=== PATIENT | male | born 1960 | race Caucasian/White ===

== ENCOUNTER → 2016-05-31 | Outpatient (REF) | payer OTHER ==
[~2016-05-31] MED LIST: BACT800T5 PO; CINN1CAP6 PO; CINN500C9 PO; CO Q100C10 PO; DRIS50002 PO; FISH1000 PO; GLIP10TA PO; GLIP10TA58 PO; GLUC750T2 PO; IBUP60TA PO; JANU100T PO; LISI10TA4 PO; METF1000 PO; NAPR250T2 PO; NAPR275T18 PO; TUMORIC PO; Trimethoprim/Sulfamethoxazole PO; VITA500C3 PO; ZOCO20TA PO; [UNRECOGNIZED DRUG - OTHER] PO
[2016-05-31 19:10] LABS: ALBUMIN/GLOBULIN RATIO 1.33 (1.00-1.93); ALKALINE PHOSPHATASE 48 U/L (45-117); ALT/SGPT 31 U/L (12-78); ANION GAP 7 MEQ/L (8-16); AST/SGOT 19 U/L (15-37); BILIRUBIN,TOTAL 0.6 MG/DL (0.2-1.0); BLOOD UREA NITROGEN 15 MG/DL (7-18); CALCIUM LEVEL 8.7 MG/DL (8.5-10.1); CARBON DIOXIDE LEVEL 28 MEQ/L (21-32); CHLORIDE LEVEL 104 MEQ/L (98-107); CHOLESTEROL LEVEL 134 MG/DL (<200); CREATININE FOR GFR 0.94 MG/DL (0.70-1.30); GLOMERULAR FILTRATION RATE > 60.0 (>56); GLUCOSE, FASTING 162 MG/DL (70-105); POTASSIUM SERUM 4.8 MEQ/L (3.5-5.1); SODIUM LEVEL 139 MEQ/L (136-145); TRIGLYCERIDES LEVEL 137 MG/DL (<150)
== END ==
LOC: M LABDRAW1 17:11
PROVIDERS: ATTEND Family Medicine
DX: E11.9 Type 2 diabetes mellitus without complications (principal); E55.9 Vitamin D deficiency, unspecified; E78.5 Hyperlipidemia, unspecified; I10 Essential (primary) hypertension

== ENCOUNTER → 2016-06-19 | Outpatient (REF) | payer OTHER | LOC: M SMT 16:48 | PROVIDERS: ATTEND Nurse Practitioner Family | DX: R35.0 Frequency of micturition (principal) ==

== ENCOUNTER → 2016-10-04 | Outpatient (CLI) | payer OTHER | END | disposition home or self-care (01) | LOC: M SMT PRO 09:07 | PROVIDERS: ATTEND Urology | DX: N48.6 Induration penis plastica (principal); Z53.9 Procedure and treatment not carried out, unspecified reason ==

== ENCOUNTER → 2016-11-01 | Outpatient (CLI) | payer OTHER ==
[~2016-11-01] MED LIST changes: -GLIP10TA58 PO; +GLIP1TAB11 PO; -METF1000 PO; +METF10004 PO; -NAPR250T2 PO; +NAPR250T4 PO; -NAPR275T18 PO; +[UNRECOGNIZED DRUG - CODE] PO
== END ==
LOC: M SMT PRO 10:59
PROVIDERS: ATTEND Urology
DX: N48.6 Induration penis plastica (principal); N52.9 Male erectile dysfunction, unspecified

== ENCOUNTER 2017-03-14 19:52 | Emergency (ER) | payer OTHER ==
[~2017-03-14] VITALS: Ht 172.7 cm; Wt 93.2 kg
[2017-03-14] MEDS ORDERED: VALA1TAB2 PO (20:15)
[2017-03-14] MEDS ORDERED: INVO100T PO (20:15)
[2017-03-14] MEDS ORDERED: CLINDAMYCIN 900 MG in APPROPRIATE DILUENT 1 EA IV ONE (20:30)
[2017-03-14] MEDS ORDERED: valACYclovir HCL 500 MG TAB PO ONE (20:45)
[2017-03-14] MEDS ORDERED: ACETAMINOPHEN 325 MG TAB PO ONE (20:45)
[2017-03-14 20:53] LABS: MEAN CORPUSCULAR HEMOGLOBIN 31.1 pg (27.0-33.0); MEAN CORPUSCULAR HGB CONC 33.5 g/dl (32.0-36.5); PLATELET COUNT, AUTOMATED 258 10^3/uL (150-450); RED CELL DISTRIBUTION WIDTH 13.2 % (11.5-14.5)
[2017-03-14 20:58] LABS: ADD MANUAL DIFFER YES; DIFF SLIDE NUMBER 135; POSITIVE DIFF POS FLAG; WHITE BLOOD COUNT 20.8 10^3/uL (4.0-10.0)
[2017-03-14 21:18] LABS: ALBUMIN 4.3 GM/DL (3.2-5.2); ALBUMIN/GLOBULIN RATIO 1.08 (1.00-1.93); ALKALINE PHOSPHATASE 49 U/L (45-117); ALT/SGPT 28 U/L (12-78); ANION GAP 6 MEQ/L (8-16); AST/SGOT 18 U/L (7-37); BILIRUBIN,TOTAL 0.4 MG/DL (0.2-1.0); BLOOD UREA NITROGEN 28 MG/DL (7-18); CALCIUM LEVEL 9.4 MG/DL (8.5-10.1); CARBON DIOXIDE LEVEL 31 MEQ/L (21-32); CHLORIDE LEVEL 100 MEQ/L (98-107); CREATININE FOR GFR 1.29 MG/DL (0.70-1.30); GLOMERULAR FILTRATION RATE > 60.0 (>56); GLUCOSE, FASTING 155 MG/DL (70-105); POTASSIUM SERUM 4.3 MEQ/L (3.5-5.1); SODIUM LEVEL 137 MEQ/L (136-145); TOTAL PROTEIN 8.3 GM/DL (6.4-8.2)
[2017-03-14 21:20] LABS: BANDS 2 % (< 11)
--- NOTE | 2017-03-14 21:40 | REPUSA ---
Clinical history: Pain, swelling. Findings: The common femoral, superficial femoral, popliteal, and other deep venous structures compre ss normally and demonstrate normal color Doppler flow. Normal venous waveforms with augmentation are seen. There is a cyst in the left popliteal fossa measuring 4.9 x 2.0 x 3.9 cm. Impression: No evidence of deep vein thrombosis in the left femoral popliteal venous system. Left-sided Tang grabiel t.
[2017-03-14] MEDS ORDERED: CLEO300C2 PO (22:19)
[2017-03-14 22:31] VITALS: BP 138/68
[2017-03-14] MEDS ORDERED: IBUPROFEN 800 MG TAB PO ONE (23:15)
== END 2017-03-14 23:56 | disposition home or self-care (01) ==
LOC: M ED 19:52
DX: L03.116 Cellulitis of left lower limb (principal); Z87.891 Personal history of nicotine dependence

== ENCOUNTER 2017-03-16 18:16 | Inpatient (IN) | payer OTHER ==
[~2017-03-16] VITALS: Ht 172.7 cm; Wt 94.5 kg
[~2017-03-16 18:16] MED LIST changes: +CLEO300C2 PO; +INVO100T PO; +VALA1TAB2 PO
[2017-03-16] MEDS ORDERED: NS 1,000 ML IV ONE (19:45)
[2017-03-16 20:24] LABS: MEAN CORPUSCULAR HEMOGLOBIN 30.8 pg (27.0-33.0); MEAN CORPUSCULAR HGB CONC 32.8 g/dl (32.0-36.5); MEAN CORPUSCULAR VOLUME 94.1 fl (80.0-96.0); PLATELET COUNT, AUTOMATED 236 10^3/uL (150-450); RED CELL DISTRIBUTION WIDTH 13.4 % (11.5-14.5); WHITE BLOOD COUNT 12.5 10^3/uL (4.0-10.0)
[2017-03-16 20:48] LABS: INR 0.87
[2017-03-16 20:49] LABS: ANION GAP 6 MEQ/L (8-16); BLOOD UREA NITROGEN 22 MG/DL (7-18); CALCIUM LEVEL 8.8 MG/DL (8.5-10.1); CARBON DIOXIDE LEVEL 28 MEQ/L (21-32); CHLORIDE LEVEL 105 MEQ/L (98-107); CREATININE FOR GFR 1.03 MG/DL (0.70-1.30); GLOMERULAR FILTRATION RATE > 60.0 (>56); GLUCOSE, FASTING 147 MG/DL (70-105); POTASSIUM SERUM 4.5 MEQ/L (3.5-5.1); SODIUM LEVEL 139 MEQ/L (136-145)
[2017-03-16 21:48] LABS: ERYTHROCYTE SEDIMENTATION RATE 7 mm/hr (0-20)
[2017-03-16] MEDS ORDERED: CEFTAROLINE FOSAMIL 600 MG in APPROPRIATE DILUENT 1 EA IV ONE (22:00)
[2017-03-16] MEDS ORDERED: CLEO150C PO (22:40)
[2017-03-16] MEDS ORDERED: DEXTROSE 50% 50 ML SYRINGE IV PRN (23:15)
[2017-03-16] MEDS ORDERED: GLUCAGON FOR INJ 1 MG VIAL (J1610) SC PRN (23:15)
[2017-03-16] MEDS ORDERED: GLUCOSE 4 GM CHEW TABLET PO PRN (23:15)
--- NOTE | 2017-03-17 01:17 | HPE ---
DATE OF ADMISSION: 03/16/2017 The patient, Mathew Troncoso, is a 56-year-old male. Patient comes in with chief complaint of worsening cellulitis. The patient was recently in our emergency department (ED) with left leg cellulitis on . Patient was given clindamycin and sent home on oral antibiotics; however, patient's cellulitis area increased outside of the borders drawn in the ED. However, patient is clinically improved without any constitutional symptoms at this time. No feelings of fever, nausea, vomiting, diarrhea, constipation, lightheadedness. Patient was found to have improved laboratory results, white blood cells (WBCs) improved and patient is vitally stable. However, patient is being admitted by ED secondary to failure of outpatient antibiotics. REVIEW OF SYSTEMS: Patient without any other acute complaints as noted. PREVIOUS MEDICAL HISTORY: Patient has a history of recurrent cellulitis. Patient has history of diabetes mellitus on oral medications, chronic lymphocytic leukemia (CLL) for which he is not under any treatment, but is under observation and followup, hypertension, hyperlipidemia. ALLERGIES: Patient is allergic to GLYBURIDE and TESTOSTERONE as per documentation. Patient with noncontributory family history. Patient is a nonsmoker, does not use alcohol or drugs. Patient's home medications include: - outpatient clindamycin - Invokana - CoQ10 - fish oil - glipizide - glucosamine chondroitin - lisinopril - metformin - naproxen - simvastatin - valacyclovir for which he is taking as continued treatment for resolving shingles PHYSICAL EXAMINATION: Patient's vital signs: Temperature 97.5, pulse 59, respiratory rate 19, blood pressure 127/76, pulse oximetry 96% on room air. Patient with no imaging on this visit. Patient was resting comfortably when I came in, alert and oriented times three. Patient with extraocular movements intact, pupils equal and reactive to light and accommodation. ENT within normal limits. Good inspiratory, expiratory effort. No wheezes, rhonchi or rales. S1, S2, regular rate. No murmur, rub or gallop. Abdomen soft, nontender to palpation. Skin is warm and dry. There is, however, obvious cellulitis on the left lower leg, which has clearly spread outside of the previously demarcated area from . Patient with good pulses peripherally. Patient with 5/5 strength and full range of motion. Patient's cranial nerves II-XII grossly intact. Patient with good strength, able to sit up under his own power. Patient with normal affect, normal mood. No apparent worsening of lymphadenopathy; however, patient does have an enlarged lymph node in the left inguinal area. However, patient notes that this is much smaller than it was previously. LABORATORY EXAMINATION: Shows improved WBC count as noted above, hemoglobin and hematocrit and platelets normal. Chemistry grossly normal excepting BUN 22, fasting glucose is 147, however, this is not a fasting glucose. CRP is 4.1. Coagulations grossly normal. ASSESSMENT AND PLAN: The patient is a 56-year-old male who comes in with cellulitis. Patient to continue intravenous (IV) Teflaro started in emergency department (ED). Patient's condition improving despite increased area of redness. Patient constitutionally improving and lymphadenopathy improving. Expect patient to be here for a couple days for IV antibiotics; however, early discharge possible. Patient is ambulatory and not at high risk for thrombosis, therefore, chemical deep venous thrombosis (DVT) prophylaxis is not indicated. Gastroesophageal reflux disease (GERD)/gastrointestinal (GI) prophylaxis. Patient to be on proton pump inhibitor (PPI). Diabetes mellitus. Will put patient on insulin sliding scale. Continue patient's valacyclovir for resolving shingles. For hyperlipidemia, continue patient's home medication of simvastatin. For chronic joint pain, continue patient's home medication of naproxen. For hypertension, continue lisinopril 10 mg. Patient was first seen 03/16/2017.
[2017-03-17 02:00] VITALS: BP 156/77
[2017-03-17] MEDS: ACETAMINOPHEN TAB 650MG DOSE (2X325MG) PO PRN (05:40)
[2017-03-17] MEDS: valACYclovir HCL 500 MG TAB PO SCH ×3 (05:40→21:35)
[2017-03-17 06:00] VITALS: BP 120/64
[2017-03-17 06:37] LABS: MEAN CORPUSCULAR HEMOGLOBIN 30.9 pg (27.0-33.0); MEAN CORPUSCULAR HGB CONC 33.1 g/dl (32.0-36.5); MEAN CORPUSCULAR VOLUME 93.5 fl (80.0-96.0); PLATELET COUNT, AUTOMATED 239 10^3/uL (150-450); RED CELL DISTRIBUTION WIDTH 13.3 % (11.5-14.5); WHITE BLOOD COUNT 14.9 10^3/uL (4.0-10.0)
[2017-03-17 06:56] LABS: ANION GAP 8 MEQ/L (8-16); BLOOD UREA NITROGEN 18 MG/DL (7-18); CARBON DIOXIDE LEVEL 24 MEQ/L (21-32); CHLORIDE LEVEL 107 MEQ/L (98-107); GLOMERULAR FILTRATION RATE > 60.0 (>56); GLUCOSE, FASTING 144 MG/DL (70-105); POTASSIUM SERUM 4.4 MEQ/L (3.5-5.1); SODIUM LEVEL 139 MEQ/L (136-145)
[2017-03-17] MEDS: HumaLOG INSULIN (NovoLOG) PER UNIT SC SCH ×3 (07:43→17:24)
[2017-03-17] MEDS: PANTOPRAZOLE 40MG TAB (PROTONIX) PO SCH (09:18)
[2017-03-17] MEDS: CEFTAROLINE FOSAMIL 600 MG in APPROPRIATE DILUENT 1 EA IV SCH ×2 (10:24→21:35)
[2017-03-17] MEDS: NAPROXEN 250 MG TAB PO PRN ×2 (10:25→21:36)
--- NOTE | 2017-03-17 11:29 | IPNPDOC ---
Subjective Date Seen The patient was seen on 03/17/17. Subjective Chief Complaint/HPI The patient is a 56-year-old male admitted with a reason for visit of Cellulitis Of Leg Without Foot. Events since last encounter No new complaints over night , inflammation less than yesterday , denies any fever or chills, no chest pain or sob , no abdominal pain nausea or vomiting or diarrhea. Objective Physical Examination General Exam: Positive: Alert, Cooperative, No Acute Distress Eye Exam: Positive: PERRLA, Conjunctiva & lids normal, EOMI, Negative: Sclera icteric ENT Exam: Positive: Atraumatic, Mucous membr. moist/pink, Pharynx Normal Neck Exam: Positive: Supple, Negative: JVD, thyromegaly Chest Exam: Positive: Clear to auscultation, Normal air movement Heart Exam: Positive: Rate Normal, Regular Rhythm, Normal S1, Normal S2, Negative: Murmurs, Rubs Abdomen Exam: Positive: Normal bowel sounds, Soft, Negative: Tenderness, Hepatospenomegaly Extremity Exam: Positive: Normal pulses, Negative: Clubbing, Cyanosis, Edema Skin Exam: Positive: Other skin issue (redness, swelling on the shafer of left leg improving) Assessment /Plan Problems (1) Cellulitis Status: Acute Problem Text: continue ceftaroline. will consider discharging on dalvance. (2) Diabetes mellitus Status: Chronic (3) Personal history of CLL (chronic lymphocytic leukemia) Status: Chronic (4) HLD (hyperlipidemia) Status: Chronic (5) HTN (hypertension) Status: Chronic Plan/VTE VTE Prophylaxis Ordered?: Yes VS, I&O, 24H, Fishbone Vital Signs/I&O Vital Signs Date Time Temp Pulse Resp B/P (MAP) Pulse Ox O2 Delivery O2 Flow Rate FiO2 03/17/17 10:06 Room Air 03/17/17 06:00 97.7 70 17 120/64 (82) 96 I&O- Last 24 Hours up to 6 AM 03/18/17 06:00 Intake Total 840 ml Output Total 850 ml Balance -10 ml Laboratory Data 24H LABS Laboratory Tests 2 03/16/17 20:10: Nucleated Red Blood Cells % (auto) 0.2H, Erythrocyte Sedimentation Rate 7, Prothrombin Time 11.9L, Prothromb Time International Ratio 0.87, Anion Gap 6L, Glomerular Filtration Rate > 60.0, Lactic Acid Level 1.1, Blood Urea Nitrogen 22H, Creatinine 1.03, Sodium Level 139, Potassium Level 4.5, Chloride Level 105 , Carbon Dioxide Level 28, Calcium Level 8.8, C-Reactive Protein, Quantitative 4.10H 03/17/17 05:56: Nucleated Red Blood Cells % (auto) 0.0, Anion Gap 8, Glomerular Filtration Rate > 60.0, Blood Urea Nitrogen 18, Creatinine 0.90, Sodium Level 139, Potassium Level 4.4, Chloride Level 107, Carbon Dioxide Level 24, Calcium Level 9.0 CBC/BMP Laboratory Tests 03/16/17 20:10 Red Blood Count 4.93, Mean Corpuscular Volume 94.1, Mean Corpuscular Hemoglobin 30.8, Mean Corpuscular Hemoglobin Concent 32.8, Red Cell Distribution Width 13.4 , Calcium Level 8.8 03/17/17 05:56 Red Blood Count 5.08, Mean Corpuscular Volume 93.5, Mean Corpuscular Hemoglobin 30.9, Mean Corpuscular Hemoglobin Concent 33.1, Red Cell Distribution Width 13.3 , Calcium Level 9.0 Microbiology Microbiology 03/16/17 Blood Culture, Received Pending 03/16/17 Blood Culture, Received Pending VITA CORMIER MD Mar 17, 2017 11:28
[2017-03-17 14:00] VITALS: BP 153/77
[2017-03-17 17:26] VITALS: BP 133/76
[2017-03-17] MEDS ORDERED: LISINOPRIL 10 MG TAB PO SCH (18:00)
[2017-03-17] MEDS ORDERED: SIMVASTATIN 20 MG TAB PO SCH (18:00)
[2017-03-17] MEDS ORDERED: OMEGA-3 1050MG CAPSULE PO SCH (18:00)
[2017-03-17] MEDS ORDERED: HumaLOG INSULIN (NovoLOG) PER UNIT SC SCH (21:00)
[2017-03-17 22:00] VITALS: BP 142/68
[2017-03-18] MEDS: ACETAMINOPHEN TAB 650MG DOSE (2X325MG) PO PRN (04:22)
[2017-03-18 06:00] VITALS: BP 129/76
[2017-03-18 06:03] LABS: MEAN CORPUSCULAR HEMOGLOBIN 30.6 pg (27.0-33.0); MEAN CORPUSCULAR HGB CONC 33.5 g/dl (32.0-36.5); MEAN CORPUSCULAR VOLUME 91.6 fl (80.0-96.0); PLATELET COUNT, AUTOMATED 252 10^3/uL (150-450); RED CELL DISTRIBUTION WIDTH 13.2 % (11.5-14.5); WHITE BLOOD COUNT 11.4 10^3/uL (4.0-10.0)
[2017-03-18 06:10] LABS: ANION GAP 8 MEQ/L (8-16); BLOOD UREA NITROGEN 18 MG/DL (7-18); CALCIUM LEVEL 8.9 MG/DL (8.5-10.1); CARBON DIOXIDE LEVEL 25 MEQ/L (21-32); CHLORIDE LEVEL 107 MEQ/L (98-107); CREATININE FOR GFR 0.82 MG/DL (0.70-1.30); GLOMERULAR FILTRATION RATE > 60.0 (>56); GLUCOSE, FASTING 166 MG/DL (70-105); POTASSIUM SERUM 4.6 MEQ/L (3.5-5.1); SODIUM LEVEL 140 MEQ/L (136-145)
[2017-03-18] MEDS: valACYclovir HCL 500 MG TAB PO SCH (06:37)
[2017-03-18] MEDS: NAPROXEN 250 MG TAB PO PRN (06:38)
[2017-03-18] MEDS: PANTOPRAZOLE 40MG TAB (PROTONIX) PO SCH (08:06)
[2017-03-18] MEDS: HumaLOG INSULIN (NovoLOG) PER UNIT SC SCH ×2 (08:06→12:31)
[2017-03-18] MEDS: CEFTAROLINE FOSAMIL 600 MG in APPROPRIATE DILUENT 1 EA IV SCH (10:46)
--- NOTE | 2017-03-18 14:00 | DSES ---
DATE OF ADMISSION: 03/16/2017 DATE OF DISCHARGE: PRIMARY CARE PROVIDER: Grant Newberry DISCHARGE DIAGNOSES: 1. Cellulitis of the left lower extremity. 2. Diabetes. 3. Hyperlipidemia. 4. Hypertension. 5. History of chronic lymphocytic leukemia, for which he is under observation. 6. Recent history of shingles of the right neck and chest. DISCHARGE MEDICATIONS: - Dalvance 1.5 gram once on 03/11/2017 - Invokana 100 mg by mouth daily - Coenzyme Q10 100 mg by mouth daily - fish oil 1000 mg by mouth at bedtime - glipizide XL 10 mg by mouth daily - glucosamine chondroitin one tablet by mouth twice a day - lisinopril 10 mg by mouth each evening - metformin hydrochloride 1000 mg by mouth twice a day - naproxen 250 mg by mouth twice a day as needed pain - simvastatin 20 mg each evening - valacyclovir 1 gram by mouth every 8 hours HOSPITAL COURSE: This is a 56-year-old male who initially had a small amount of redness and localized infection on the shafer of his left leg about 2-1/2 weeks ago, for which he was given a course of oral antibiotics, which seemed to have improved. Then, he developed shingles, for which he was started on valacyclovir; and when he was recovering from his shingles, he noticed the redness of his left lower leg has again come back and has increased; so, he came to the emergency room. In the emergency department (ED), he got one dose of intravenous (IV) antibiotic and discharged home with by mouth clindamycin. He stayed at home about 24-36 hours. However, he noticed the redness and pain increasing further. So, he came back to the emergency room and was admitted to the hospitalist service for cellulitis. The patient was started on ceftaroline with good response to treatment. The patient's blood cultures were preliminarily negative. The patient's pain and inflammation almost resolved. His vital signs are stable. He does not have any complaints today. He is going to be discharged home with a dose of Dalvance to be given on 03/19/2017 at his home to finish the course of treatment for his cellulitis. PHYSICAL EXAMINATION: VITAL SIGNS: Temperature 97.1, pulse 58, respiratory rate 16, blood pressure 129/76, pulse oximetry 95% in room air. GENERAL: The patient awake, alert, oriented times three. Sitting up in bed in no acute distress. HEENT: Normocephalic, atraumatic. Moist mucous membranes. Anicteric eyes. CHEST: Clear to auscultation. CARDIOVASCULAR: S1, S2. Regular. No rub, murmur, or gallop. ABDOMEN: Soft, nontender. Bowel sounds present. EXTREMITIES: No edema. In the left lower extremity, there is improving area of redness and inflammation. LABORATORY DATA: WBC 11.4, platelet 252, hemoglobin 15.6. Sodium 140, potassium 4.6, chloride 107, bicarbonate 35, BUN 13, creatinine 0.8, glucose 166, calcium 8.9. Vascular ultrasound was negative for deep venous thrombosis (DVT). DISPOSITION: The patient is discharged home in a stable condition. DISCHARGE INSTRUCTIONS: The patient to followup with primary care provider in 1 week. Consistent-carbohydrate diet. Activity as tolerated.
== END 2017-03-18 13:59 | disposition home health service (06) | DRG 603 ==
LOC: M ED 18:16 → M ED INP 22:28 → M MSPAV 03-17 00:31
PROVIDERS: ADMIT Internal Medicine; ATTEND Internal Medicine Nephrology
DX: L03.116 Cellulitis of left lower limb (principal); C91.90 Lymphoid leukemia, unspecified not having achieved remission; E11.628 Type 2 diabetes mellitus with other skin complications; I10 Essential (primary) hypertension; E78.5 Hyperlipidemia, unspecified; M25.50 Pain in unspecified joint; B02.9 Zoster without complications; Z79.84 Long term (current) use of oral hypoglycemic drugs; Z88.8 Allergy status to other drugs, medicaments and biological substances; Z79.899 Other long term (current) drug therapy

== ENCOUNTER → 2017-05-02 | Outpatient (REF) | payer OTHER ==
[2017-05-02 15:51] LABS: HEMATOCRIT 47.9 % (42.0-52.0); HEMOGLOBIN 15.9 g/dl (14.0-18.0); MEAN CORPUSCULAR HEMOGLOBIN 31.1 pg (27.0-33.0); MEAN CORPUSCULAR HGB CONC 33.2 g/dl (32.0-36.5); MEAN CORPUSCULAR VOLUME 93.7 fl (80.0-96.0); PLATELET COUNT, AUTOMATED 232 10^3/uL (150-450); RED BLOOD COUNT 5.11 10^6/uL (4.30-6.10); RED CELL DISTRIBUTION WIDTH 13.2 % (11.5-14.5)
[2017-05-02 15:53] LABS: POSITIVE DIFF POS FLAG; WHITE BLOOD COUNT 14.2 10^3/uL (4.0-10.0)
[2017-05-02 15:54] LABS: ADD MANUAL DIFFER YES; DIFF SLIDE NUMBER 267
[2017-05-02 16:17] LABS: ALBUMIN 4.2 GM/DL (3.2-5.2); ALKALINE PHOSPHATASE 43 U/L (45-117); ALT/SGPT 29 U/L (12-78); ANION GAP 9 MEQ/L (8-16); AST/SGOT 19 U/L (7-37); BILIRUBIN,TOTAL 0.4 MG/DL (0.2-1.0); BLOOD UREA NITROGEN 24 MG/DL (7-18); C REACTIVE PROTEIN QUANTITATIV < 0.30 MG/DL (0.00-0.30); CALCIUM LEVEL 9.2 MG/DL (8.5-10.1); CARBON DIOXIDE LEVEL 26 MEQ/L (21-32); CHLORIDE LEVEL 104 MEQ/L (98-107); CREATININE FOR GFR 0.92 MG/DL (0.70-1.30); GLOMERULAR FILTRATION RATE > 60.0 (>56); GLUCOSE, FASTING 191 MG/DL (70-105); POTASSIUM SERUM 4.8 MEQ/L (3.5-5.1); SODIUM LEVEL 139 MEQ/L (136-145)
[2017-05-02 16:37] LABS: ERYTHROCYTE SEDIMENTATION RATE 1 mm/hr (0-20)
[2017-05-02 16:52] LABS: ATYPICAL LYMPH 7 % (0-5); LYMPHOCYTES 70 % (16-52); MONOCYTES 5 % (0-8); NEUTROPHILS 18 % (35-75)
[2017-05-02 16:53] LABS: PLATELET ESTIMATE NORMAL (NORMAL); SMUDGE CELLS 1+
== END ==
LOC: M SFHCPLAZ 13:41
DX: L03.119 Cellulitis of unspecified part of limb (principal)

== ENCOUNTER → 2017-05-23 | Outpatient (REF) | payer OTHER ==
[2017-05-23 16:22] LABS: HEMATOCRIT 49.2 % (42.0-52.0); HEMOGLOBIN 16.4 g/dl (14.0-18.0); MEAN CORPUSCULAR HEMOGLOBIN 31.2 pg (27.0-33.0); MEAN CORPUSCULAR HGB CONC 33.3 g/dl (32.0-36.5); MEAN CORPUSCULAR VOLUME 93.5 fl (80.0-96.0); PLATELET COUNT, AUTOMATED 243 10^3/uL (150-450); RED BLOOD COUNT 5.26 10^6/uL (4.30-6.10); RED CELL DISTRIBUTION WIDTH 13.1 % (11.5-14.5)
[2017-05-23 16:33] LABS: ADD MANUAL DIFFER YES; DIFF SLIDE NUMBER 299; POSITIVE DIFF POS FLAG; WHITE BLOOD COUNT 14.4 10^3/uL (4.0-10.0)
[2017-05-23 16:42] LABS: ALBUMIN 4.2 GM/DL (3.2-5.2); ALKALINE PHOSPHATASE 45 U/L (45-117); ALT/SGPT 28 U/L (12-78); AST/SGOT 15 U/L (7-37); BILIRUBIN,DIRECT 0.1 MG/DL (0.0-0.2); BILIRUBIN,TOTAL 0.4 MG/DL (0.2-1.0); IMMUNOGLOBULIN A 96.1 MG/DL (70-400); IMMUNOGLOBULIN G 906 MG/DL (681-1648); IMMUNOGLOBULIN M 34.1 MG/DL (40-230); TOTAL PROTEIN 7.2 GM/DL (6.4-8.2)
[2017-05-23 19:17] LABS: ATYPICAL LYMPH 20 % (0-5); LYMPHOCYTES 56 % (16-52); MONOCYTES 3 % (0-8); NEUTROPHILS 21 % (35-75); PLATELET ESTIMATE NORMAL (NORMAL)
== END ==
LOC: M SFHCPLAZ 15:34
DX: C91.10 Chronic lymphocytic leukemia of B-cell type not having achieved remission (principal); B35.3 Tinea pedis

== ENCOUNTER → 2017-06-18 | Outpatient (REF) | payer OTHER ==
[2017-06-18 20:43] LABS: ALBUMIN 3.9 GM/DL (3.2-5.2); ALKALINE PHOSPHATASE 41 U/L (45-117); ALT/SGPT 27 U/L (12-78); ANION GAP 4 MEQ/L (8-16); AST/SGOT 14 U/L (7-37); BILIRUBIN,TOTAL 0.3 MG/DL (0.2-1.0); BLOOD UREA NITROGEN 22 MG/DL (7-18); CARBON DIOXIDE LEVEL 31 MEQ/L (21-32); CHLORIDE LEVEL 105 MEQ/L (98-107); CHOLESTEROL LEVEL 145 MG/DL (<200); CHOLESTEROL RISK RATIO 4.393 (<5); CREATININE FOR GFR 0.95 MG/DL (0.70-1.30); GLOMERULAR FILTRATION RATE > 60.0 (>56); GLUCOSE, FASTING 164 MG/DL (70-100); HDL CHOLESTEROL 33 MG/DL (>40); NON-HDL-C 112 MG/DL; POTASSIUM SERUM 4.8 MEQ/L (3.5-5.1); SODIUM LEVEL 140 MEQ/L (136-145); TOTAL PROTEIN 6.5 GM/DL (6.4-8.2); TRIGLYCERIDES LEVEL 125 MG/DL (<150)
[2017-06-18 21:23] LABS: ESTIMATED AVERAGE GLUCOSE 177 MG/DL (60-110); HEMOGLOBIN A1c 7.8 %
== END ==
LOC: M LABDRWAD 19:35
DX: E11.9 Type 2 diabetes mellitus without complications (principal); E78.5 Hyperlipidemia, unspecified; I10 Essential (primary) hypertension
CPT/HCPCS: 80053

== ENCOUNTER 2017-09-11 20:51 | Emergency (ER) | payer OTHER ==
[2017-09-12] MEDS: NORCO 5/325MG TABLET (BULK FOR ED) PO (02:14)
== END 2017-09-12 02:20 | disposition home or self-care (01) ==
LOC: M ED 09-12 02:20
DX: S46.812A Strain of other muscles, fascia and tendons at shoulder and upper arm level, left arm, initial encounter (principal); W55.29XA Other contact with cow, initial encounter; Y92.9 Unspecified place or not applicable; Y93.9 Activity, unspecified; Y99.9 Unspecified external cause status; I10 Essential (primary) hypertension; G43.909 Migraine, unspecified, not intractable, without status migrainosus; K21.9 Gastro-esophageal reflux disease without esophagitis; E78.5 Hyperlipidemia, unspecified; Z85.6 Personal history of leukemia; E23.0 Hypopituitarism; Z79.84 Long term (current) use of oral hypoglycemic drugs; Z79.899 Other long term (current) drug therapy; Z88.8 Allergy status to other drugs, medicaments and biological substances
CPT/HCPCS: 71101

== ENCOUNTER → 2018-06-28 | Outpatient (CLI) | payer OTHER ==
[~2018-06-28] MED LIST changes: +CLEO150C PO; +CYCL10TA PO; -DRIS50002 PO; +DRIS50003 PO; +GLUC750T13 PO; -GLUC750T2 PO; +KETO10TAB PO; +NORC1TAB4 PO; +VITA50005; +[UNRECOGNIZED DRUG - CODE] PO; -[UNRECOGNIZED DRUG - CODE] PO
--- NOTE | 2018-06-28 11:38 | REP ---
Lumbar spine five views: There are no comparisons. There is scoliosis convex left in the inferior lumbar area. Vertebral body heights, interspacing and alignment are normal except for moderate disc space narrowing and small osteophyte formation at T12-L1 and L1-2 compatible with mild degenerative disc disease at these levels. There is no spondylolysis or spondylolisthesis. The pedicles, facets and sacroiliac articulations are unremarkable. Impression: Scoliosis as described. Mild degenerative disc disease as described. Electronically Signed by Heriberto Bautista MD 06/28/2018 11:28 A
== END ==
LOC: M ADAMS 10:32
PROVIDERS: ATTEND Physician Assistant Medical
DX: M51.26 Other intervertebral disc displacement, lumbar region (principal); M51.27 Other intervertebral disc displacement, lumbosacral region; M41.86 Other forms of scoliosis, lumbar region

== ENCOUNTER 2018-06-29 13:07 | Emergency (ER) | payer OTHER ==
[~2018-06-29] VITALS: Ht 172.7 cm; Wt 93.2 kg
[~2018-06-29 13:07] MED LIST changes: -KETO10TAB PO; -NORC1TAB4 PO
[2018-06-29] MEDS ORDERED: NORC1TAB4 PO (13:20)
[2018-06-29] MEDS ORDERED: MORPHINE 10 MG/ML 1ML VIAL (J2270) IM ONE (14:30)
--- NOTE | 2018-06-29 16:15 | REPVR ---
EXAM: MR Lumbar Spine Without Contrast. EXAM DATE/TIME: 06/29/2018 2:29 PM CLINICAL HISTORY: 57 years old, male; Pain; Low back pain; Additional info: Low back pain; Reported lower ext numbness TECHNIQUE: Multiplanar magnetic resonance images of the lumbar spine without intravenous contrast. COMPARISON: DX SPINE LS COMPLETE 06/28/2018 10:27 AM FINDINGS: Vertebrae: Unremarkable. No fracture. Marrow: Small hemangioma within the L4 vertebral body. L1-L2: No significant disc disease. No stenosis. L2-L3: No significant disc disease. No stenosis. L3-L4: Minimal disc space height loss and decreased disc signal. Mild posterior broad-based disc protrusion and bilateral facet hypertrophy. No focal protrusion or nerve root impingement. No spinal stenosis. L4-L5: Disc space height loss and mild decreased disc signal. Posterior broad-based disc protrusion and left-sided posterior lateral/foraminal focal disc protrusion, which abuts and posteriorly displaces the left L5 nerve root. Mild bilateral facet hypertrophy. Mild spinal stenosis. L5-S1: Posterior central annular fissure and small posterior central focal disc protrusion/extrusion with 4 mm of caudal migration. Mild bilateral facet hypertrophy. No nerve root impingement or spinal stenosis. Spinal cord: The conus terminates at the level of the L1 superior endplate. Soft tissues: Unremarkable. IMPRESSION: Degenerative spondylosis of the lower lumbar spine. This is most severe at L4-L5, where there is a left sided posterior lateral/foraminal focal disc protrusion, which abuts and posteriorly displaces the left L5 nerve root. Electronically signed by: Magan Massey On 06/29/2018 16:15:00 PM
[2018-06-29] MEDS ORDERED: KETO10TAB PO (16:44)
[2018-06-29 16:54] VITALS: BP 112/66
== END 2018-06-29 16:54 | disposition home or self-care (01) ==
LOC: M ED 13:07
DX: M51.16 Intervertebral disc disorders with radiculopathy, lumbar region (principal); E11.9 Type 2 diabetes mellitus without complications; I10 Essential (primary) hypertension; G43.909 Migraine, unspecified, not intractable, without status migrainosus; G47.33 Obstructive sleep apnea (adult) (pediatric); C91.10 Chronic lymphocytic leukemia of B-cell type not having achieved remission; Z87.19 Personal history of other diseases of the digestive system; Z88.8 Allergy status to other drugs, medicaments and biological substances; Z79.899 Other long term (current) drug therapy; Z79.84 Long term (current) use of oral hypoglycemic drugs
CPT/HCPCS: 72148; 96372; 99283; J2270

== ENCOUNTER → 2018-06-30 | Outpatient (REF) | payer OTHER ==
[~2018-06-30] MED LIST changes: +KETO10TAB PO; +NORC1TAB4 PO
[2018-06-30 16:08] LABS: ALBUMIN 4.3 GM/DL (3.2-5.2); ALT/SGPT 28 U/L (12-78); BILIRUBIN,TOTAL 0.7 MG/DL (0.2-1.0); BLOOD UREA NITROGEN 27 MG/DL (7-18); C REACTIVE PROTEIN QUANTITATIV < 0.30 MG/DL (0.00-0.30); CARBON DIOXIDE LEVEL 28 MEQ/L (21-32); CHLORIDE LEVEL 104 MEQ/L (98-107); CREATININE FOR GFR 0.93 MG/DL (0.70-1.30); GLOMERULAR FILTRATION RATE > 60.0 (>56); GLUCOSE, FASTING 152 MG/DL (70-100); POTASSIUM SERUM 5.2 MEQ/L (3.5-5.1); RHEUMATOID FACTOR QUANT < 10.0 IU/ML (<15.0); SODIUM LEVEL 137 MEQ/L (136-145); TOTAL PROTEIN 7.3 GM/DL (6.4-8.2)
[2018-06-30 16:11] LABS: HEMATOCRIT 54.4 % (42.0-52.0); MEAN CORPUSCULAR HEMOGLOBIN 31.5 pg (27.0-33.0); MEAN CORPUSCULAR HGB CONC 33.1 g/dl (32.0-36.5); MEAN CORPUSCULAR VOLUME 95.1 fl (80.0-96.0); PLATELET COUNT, AUTOMATED 239 10^3/uL (150-450); RED BLOOD COUNT 5.72 10^6/uL (4.30-6.10)
[2018-06-30 16:34] LABS: ERYTHROCYTE SEDIMENTATION RATE 1 mm/hr (0-20)
[2018-06-30 17:16] LABS: LYMPHOCYTES 63 % (16-52); MONOCYTES 3 % (0-8); NEUTROPHILS 34 % (35-75)
[2018-06-30 17:17] LABS: PLATELET ESTIMATE NORMAL (NORMAL)
[2018-07-02 10:53] LABS: ANTINUCLEAR ANTIBODIES DIRECT Negative (Negative)
== END ==
LOC: M LABDRAW1 15:29
PROVIDERS: ATTEND Physician Assistant
DX: M51.36 Other intervertebral disc degeneration, lumbar region (principal)

== ENCOUNTER → 2019-08-21 | Outpatient (REF) | payer OTHER ==
[~2019-08-21] MED LIST changes: +CYCL-707 PO; -CYCL10TA PO; +IBUP600T42 PO; -IBUP60TA PO; -NORC1TAB4 PO; +NORC1TAB7 PO; -VALA1TAB2 PO; +VALA1TAB5 PO
[2019-08-21 16:16] LABS: HEMATOCRIT 49.2 % (42.0-52.0); HEMOGLOBIN 16.5 g/dl (13.5-17.5); MEAN CORPUSCULAR HEMOGLOBIN 32.2 pg (27.0-33.0); MEAN CORPUSCULAR HGB CONC 33.5 g/dl (32.0-36.5); MEAN CORPUSCULAR VOLUME 96.1 fl (80.0-96.0); PLATELET COUNT, AUTOMATED 222 10^3/uL (150-450); RED BLOOD COUNT 5.12 10^6/uL (4.30-6.10)
[2019-08-21 16:19] LABS: WHITE BLOOD COUNT 16.6 10^3/uL (4.0-10.0)
[2019-08-21 16:36] LABS: ALBUMIN 4.1 GM/DL (3.2-5.2); ALT/SGPT 28 U/L (12-78); BILIRUBIN,TOTAL 0.5 MG/DL (0.2-1.0); BLOOD UREA NITROGEN 23 MG/DL (7-18); CALCIUM LEVEL 9.7 MG/DL (8.5-10.1); CARBON DIOXIDE LEVEL 27 MEQ/L (21-32); CHLORIDE LEVEL 105 MEQ/L (98-107); GLOMERULAR FILTRATION RATE > 60.0 (>56); GLUCOSE, FASTING 163 MG/DL (70-100); POTASSIUM SERUM 4.7 MEQ/L (3.5-5.1); SODIUM LEVEL 138 MEQ/L (136-145)
[2019-08-21 16:48] LABS: ATYPICAL LYMPH 8 % (0-5); LYMPHOCYTES 71 % (16-44); MONOCYTES 1 % (0-5); NEUTROPHILS 20 % (28-66); PLATELET CLUMPS SMALL AMT; PLATELET ESTIMATE NORMAL (NORMAL)
== END ==
LOC: M LABDRWAD 16:02
PROVIDERS: ATTEND Internal Medicine Hematology & Oncology
DX: C91.10 Chronic lymphocytic leukemia of B-cell type not having achieved remission (principal)

== ENCOUNTER → 2020-07-04 | Outpatient (REF) | payer OTHER ==
[~2020-07-04] MED LIST changes: +LISI10TA22 PO; -LISI10TA4 PO; +NAPR-849 PO; -NAPR250T4 PO
[2020-07-04 13:10] LABS: HEMATOCRIT 49.2 % (42.0-52.0); HEMOGLOBIN 15.7 g/dl (13.5-17.5); MEAN CORPUSCULAR HEMOGLOBIN 31.5 pg (27.0-33.0); MEAN CORPUSCULAR HGB CONC 31.9 g/dl (32.0-36.5); MEAN CORPUSCULAR VOLUME 98.8 fl (80.0-96.0); PLATELET COUNT, AUTOMATED 223 10^3/uL (150-450); RED BLOOD COUNT 4.98 10^6/uL (4.30-6.10); WHITE BLOOD COUNT 13.5 10^3/uL (4.0-10.0)
[2020-07-04 13:53] LABS: ALBUMIN 4.1 GM/DL (3.2-5.2); ALT/SGPT 25 U/L (12-78); BILIRUBIN,TOTAL 0.4 MG/DL (0.2-1.0); BLOOD UREA NITROGEN 17 MG/DL (7-18); CALCIUM LEVEL 9.2 MG/DL (8.5-10.1); CARBON DIOXIDE LEVEL 30 MEQ/L (21-32); CHLORIDE LEVEL 109 MEQ/L (98-107); CREATININE FOR GFR 0.83 MG/DL (0.70-1.30); GLOMERULAR FILTRATION RATE > 60.0 (>56); GLUCOSE, FASTING 143 MG/DL (70-100); POTASSIUM SERUM 4.9 MEQ/L (3.5-5.1); SODIUM LEVEL 142 MEQ/L (136-145); TOTAL PROTEIN 6.9 GM/DL (6.4-8.2)
== END ==
LOC: M LABDRWAD 12:43
PROVIDERS: ATTEND Family Medicine
DX: C91.11 Chronic lymphocytic leukemia of B-cell type in remission (principal); E11.9 Type 2 diabetes mellitus without complications

== ENCOUNTER → 2020-08-29 | Outpatient (REF) | payer OTHER ==
[2020-08-29 19:08] LABS: HEMATOCRIT 47.6 % (42.0-52.0); HEMOGLOBIN 15.4 g/dl (13.5-17.5); MEAN CORPUSCULAR HEMOGLOBIN 31.5 pg (27.0-33.0); MEAN CORPUSCULAR HGB CONC 32.4 g/dl (32.0-36.5); MEAN CORPUSCULAR VOLUME 97.3 fl (80.0-96.0); PLATELET COUNT, AUTOMATED 246 10^3/uL (150-450); RED BLOOD COUNT 4.89 10^6/uL (4.30-6.10)
[2020-08-29 19:15] LABS: WHITE BLOOD COUNT 13.9 10^3/uL (4.0-10.0)
[2020-08-29 19:37] LABS: ALBUMIN 3.9 GM/DL (3.2-5.2); ALT/SGPT 24 U/L (12-78); BILIRUBIN,TOTAL 0.3 MG/DL (0.2-1.0); BLOOD UREA NITROGEN 22 MG/DL (7-18); CARBON DIOXIDE LEVEL 32 MEQ/L (21-32); CHLORIDE LEVEL 104 MEQ/L (98-107); CREATININE FOR GFR 0.95 MG/DL (0.70-1.30); GLOMERULAR FILTRATION RATE > 60.0 (>56); GLUCOSE, FASTING 133 MG/DL (70-100); POTASSIUM SERUM 4.9 MEQ/L (3.5-5.1); SODIUM LEVEL 139 MEQ/L (136-145); TOTAL PROTEIN 6.8 GM/DL (6.4-8.2)
[2020-08-29 20:07] LABS: ATYPICAL LYMPH 13 % (0-5); LYMPHOCYTES 64 % (16-44); MONOCYTES 4 % (0-5); NEUTROPHILS 19 % (28-66)
[2020-08-29 20:08] LABS: PLATELET ESTIMATE NORMAL (NORMAL); SMUDGE CELLS 1+
== END ==
LOC: M LAB REF 18:31 → M LABDRWAD 18:31
PROVIDERS: ATTEND Internal Medicine Hematology & Oncology
DX: C91.10 Chronic lymphocytic leukemia of B-cell type not having achieved remission (principal)

== ENCOUNTER → 2021-03-27 | Outpatient (REF) | payer OTHER ==
[2021-03-27 13:21] LABS: FREE T4 0.95 NG/DL (0.76-1.46); THYROID STIMULATING HORMONE 2.73 uIU/ML (0.358-3.740)
[2021-03-27 13:23] LABS: TOTAL T3 80.1 NG/DL (60.0-181.0)
== END ==
LOC: M LABDRWAD 12:31
PROVIDERS: ATTEND Physician Assistant Medical
DX: R53.83 Other fatigue (principal)

== ENCOUNTER → 2022-05-01 | Outpatient (CLI) | payer OTHER ==
[~2022-05-01] MED LIST changes: +ACET-910 PO; +CINN500C15 PO; +CURC500C PO; +MAGN200T PO; +OMEG10002 PO; +SIMV-253 PO; +TRUL0.5I SC; +VITA-243 PO; -ZOCO20TA PO; +[UNRECOGNIZED DRUG - OTHER] PO; +[UNRECOGNIZED DRUG - OTHER] PO
== END ==
LOC: M LABSMTC 09:08
PROVIDERS: ATTEND Anesthesiology
DX: Z01.812 Encounter for preprocedural laboratory examination (principal); Z20.822 Contact with and (suspected) exposure to COVID-19

== ENCOUNTER 2022-05-04 12:34 | Day surgery (SDC) | payer OTHER ==
[~2022-05-04] VITALS: Ht 172.7 cm; Wt 92.0 kg
[~2022-05-04 12:34] MED LIST changes: +NS 1,000 ML IV ONE
[2022-05-04 16:03] VITALS: BP 104/68
== END 2022-05-04 16:13 | disposition home or self-care (01) ==
LOC: M OPP 12:34
PROVIDERS: ATTEND Internal Medicine Gastroenterology
DX: K29.70 Gastritis, unspecified, without bleeding (principal); Z79.02 Long term (current) use of antithrombotics/antiplatelets; Z79.84 Long term (current) use of oral hypoglycemic drugs; Z79.899 Other long term (current) drug therapy; I10 Essential (primary) hypertension; E11.9 Type 2 diabetes mellitus without complications; G47.33 Obstructive sleep apnea (adult) (pediatric); Z88.8 Allergy status to other drugs, medicaments and biological substances

== ENCOUNTER → 2022-06-16 | Outpatient (CLI) | payer OTHER ==
[~2022-06-16] MED LIST changes: -NS 1,000 ML IV ONE
== END ==
LOC: M RAD 13:48
PROVIDERS: ATTEND Physician Assistant
DX: S63.8X2A Sprain of other part of left wrist and hand, initial encounter (principal); X58.XXXA Exposure to other specified factors, initial encounter; Y92.9 Unspecified place or not applicable; M19.032 Primary osteoarthritis, left wrist

== ENCOUNTER 2022-07-01 11:09 | Emergency (ER) | payer OTHER ==
[~2022-07-01] VITALS: Ht 172.7 cm; Wt 92.7 kg
[2022-07-01 12:31] LABS: BLOOD UREA NITROGEN 22 MG/DL (9-23); CARBON DIOXIDE LEVEL 31 MMOL/L (20-31); CHLORIDE LEVEL 105 MMOL/L (98-107); GLOMERULAR FILTRATION RATE > 60.0 (>56); GLUCOSE, FASTING 157 MG/DL (60-100); POTASSIUM SERUM 5.1 MMOL/L (3.5-5.1); SODIUM LEVEL 138 MMOL/L (136-145)
[2022-07-01] MEDS ORDERED: NS 1,000 ML IV ONE (12:35)
[2022-07-01 12:37] LABS: BASO % 0.2 % (0.0-1.0); EOS % 0.5 % (0.0-3.0); LYMPH # 6.3 10^3/uL (1.5-5.0); LYMPH % 72.3 % (24.0-44.0); MEAN CORPUSCULAR HEMOGLOBIN 31.7 pg (27.0-33.0); MEAN CORPUSCULAR VOLUME 99.2 fl (80.0-96.0); MONO # 0.6 10^3/uL (0.0-0.8); MONO % 6.9 % (2.0-8.0); NEUTROPHILS # 1.8 10^3/uL (1.5-8.5); PLATELET COUNT, AUTOMATED 119 10^3/uL (150-450); RED BLOOD COUNT 2.52 10^6/uL (4.30-6.10); WHITE BLOOD COUNT 8.8 10^3/uL (4.0-10.0)
[2022-07-01 13:08] LABS: ALBUMIN 3.9 G/DL (3.2-5.2); ALKALINE PHOSPHATASE 40 U/L (46-116); ALT/SGPT 26 U/L (7.0-40); AST/SGOT 27 U/L (<34); BILIRUBIN,DIRECT 0.2 MG/DL (<0.4); TOTAL PROTEIN 6.4 G/DL (5.7-8.2)
[2022-07-01] MEDS ORDERED: LIDOCAINE 5% (LIDODERM) PATCH TD ONE (15:25)
[2022-07-01 15:31] LABS: LDH LACTATE DEHYDROGENASE 247 U/L (120-246)
[2022-07-01 15:53] LABS: HEMATOCRIT 43.8 % (42.0-52.0); HEMOGLOBIN 14.3 g/dl (13.5-17.5)
[2022-07-01] MEDS ORDERED: ACETAMINOPHEN 500 MG TAB PO ONE (16:00)
[2022-07-01] MEDS ORDERED: CYCL-707 PO (16:05)
[2022-07-01] MEDS ORDERED: NAPR-837 PO (16:05)
[2022-07-01 16:20] VITALS: BP 114/63
== END 2022-07-01 16:22 | disposition home or self-care (01) ==
LOC: M ED 11:09
DX: S39.012A Strain of muscle, fascia and tendon of lower back, initial encounter (principal); X58.XXXA Exposure to other specified factors, initial encounter; Y92.89 Other specified places as the place of occurrence of the external cause; Y93.89 Activity, other specified; Y99.8 Other external cause status; I10 Essential (primary) hypertension; G47.33 Obstructive sleep apnea (adult) (pediatric); E11.9 Type 2 diabetes mellitus without complications; E78.5 Hyperlipidemia, unspecified; Z88.8 Allergy status to other drugs, medicaments and biological substances; Z79.84 Long term (current) use of oral hypoglycemic drugs; Z79.899 Other long term (current) drug therapy

== ENCOUNTER 2022-12-17 09:34 | Day surgery (SDC) | payer OTHER ==
[~2022-12-17] VITALS: Ht 172.7 cm; Wt 88.6 kg
[~2022-12-17 09:34] MED LIST changes: +DULA4.5P SC; +EYECAP2 PO; +GLIP5TAB20 PO; +HEMP SEED OIL PO; +MAGN400C2 PO; +NAPR-837 PO; +NS 1,000 ML IV ONE; +OCUV1CAP4 PO; +OMEP-173 PO; +PIOG1TAB36 PO; +SIMV20TA22 PO; +UBIQ200C3 PO; +VITA500C24 PO
[2022-12-17] MEDS ORDERED: LIDOCAINE 2% 100MG/5ML SDV (FOR ANES.) As Ordered ONE (10:38)
[2022-12-17] MEDS ORDERED: propofoL 200 MG/20 ML VIAL As Ordered ONE (10:38)
[2022-12-17 11:30] VITALS: BP 136/72; TEMP 97.3; O2SAT 98
== END 2022-12-17 11:32 | disposition home or self-care (01) ==
LOC: M OPP 09:34
PROVIDERS: ATTEND Internal Medicine Gastroenterology
DX: Z12.11 Encounter for screening for malignant neoplasm of colon (principal); K63.5 Polyp of colon; K57.30 Diverticulosis of large intestine without perforation or abscess without bleeding; Z87.891 Personal history of nicotine dependence; Z79.02 Long term (current) use of antithrombotics/antiplatelets; Z79.1 Long term (current) use of non-steroidal anti-inflammatories (NSAID); Z79.84 Long term (current) use of oral hypoglycemic drugs; Z79.899 Other long term (current) drug therapy; Z88.8 Allergy status to other drugs, medicaments and biological substances

== ENCOUNTER 2023-03-31 09:19 | Emergency (ER) | payer OTHER ==
[~2023-03-31] VITALS: Ht 172.7 cm; Wt 91.2 kg
[~2023-03-31 09:19] MED LIST changes: -NS 1,000 ML IV ONE
[2023-03-31 13:49] LABS: BASO % 0.2 % (0.0-1.0); EOS # 0.1 10^3/uL (0.0-0.5); EOS % 0.3 % (0.0-3.0); HEMOGLOBIN 15.4 g/dl (13.5-17.5); LYMPH # 14.1 10^3/uL (1.5-5.0); LYMPH % 79.8 % (24.0-44.0); MEAN CORPUSCULAR HGB CONC 32.8 g/dl (32.0-36.5); MEAN CORPUSCULAR VOLUME 97.5 fl (80.0-96.0); MONO # 0.4 10^3/uL (0.0-0.8); NEUTROPHILS # 3.1 10^3/uL (1.5-8.5); NEUTROPHILS % 17.6 % (36.0-66.0); PLATELET COUNT, AUTOMATED 244 10^3/uL (150-450); RED BLOOD COUNT 4.82 10^6/uL (4.30-6.10); WHITE BLOOD COUNT 17.7 10^3/uL (4.0-10.0)
[2023-03-31 13:55] LABS: ERYTHROCYTE SEDIMENTATION RATE 3 mm/hr (0-20)
[2023-03-31] MEDS ORDERED: DOXY-443 PO (15:11)
[2023-03-31 15:19] VITALS: BP 110/60; TEMP 96.8; O2SAT 98
== END 2023-03-31 15:22 | disposition home or self-care (01) ==
LOC: M ED 09:19
DX: L03.116 Cellulitis of left lower limb (principal); E11.9 Type 2 diabetes mellitus without complications; Z85.6 Personal history of leukemia; Z79.4 Long term (current) use of insulin; Z79.899 Other long term (current) drug therapy; Z88.8 Allergy status to other drugs, medicaments and biological substances

== ENCOUNTER → 2023-04-26 | Outpatient (CLI) | payer OTHER ==
[~2023-04-26] MED LIST changes: +DOXY-443 PO; +OMEGA-3 1000MG CAPSULE ONE; +PROHANCE 279.3MG/ML 15ML VIAL ONE; +PROHANCE 279.3MG/ML 5ML VIAL ONE
== END ==
LOC: M PLAIMG 09:43
PROVIDERS: ATTEND Internal Medicine Hematology & Oncology
DX: R22.32 Localized swelling, mass and lump, left upper limb (principal)
CPT/HCPCS: 73220; A9576

== ENCOUNTER → 2023-07-16 | Outpatient (CLI) | payer OTHER ==
[~2023-07-16] MED LIST changes: -OMEGA-3 1000MG CAPSULE ONE; -PROHANCE 279.3MG/ML 15ML VIAL ONE; -PROHANCE 279.3MG/ML 5ML VIAL ONE
[2023-07-16 17:19] LABS: BASO # 0.1 10^3/uL (0.0-0.2); BASO % 0.3 % (0.0-1.0); EOS # 0.1 10^3/uL (0.0-0.5); EOS % 0.3 % (0.0-3.0); LYMPH # 13.9 10^3/uL (1.5-5.0); LYMPH % 74.5 % (24.0-44.0); MEAN CORPUSCULAR HGB CONC 32.6 g/dl (32.0-36.5); MEAN CORPUSCULAR VOLUME 98.1 fl (80.0-96.0); MONO # 0.6 10^3/uL (0.0-0.8); MONO % 3.2 % (2.0-8.0); NEUTROPHILS # 4.1 10^3/uL (1.5-8.5); NEUTROPHILS % 21.6 % (36.0-66.0); PLATELET COUNT, AUTOMATED 240 10^3/uL (150-450); RED BLOOD COUNT 4.69 10^6/uL (4.30-6.10); WHITE BLOOD COUNT 18.7 10^3/uL (4.0-10.0)
[2023-07-16 17:42] LABS: HEMOGLOBIN A1c 7.9 % (4.0-6.0)
[2023-07-16 17:49] LABS: CREATININE, URINE 81.9 MG/DL; MAU/CREAT RATIO 7.3 MCG/MG (0.0-30.0)
[2023-07-16 17:52] LABS: ALBUMIN 3.8 G/DL (3.2-5.2); ALKALINE PHOSPHATASE 38 U/L (46-116); ALT/SGPT 12 U/L (7.0-40); AST/SGOT 14 U/L (<34); BILIRUBIN,TOTAL 0.7 MG/DL (0.3-1.2); BLOOD UREA NITROGEN 21 MG/DL (9-23); CARBON DIOXIDE LEVEL 30 MMOL/L (20-31); CHLORIDE LEVEL 106 MMOL/L (98-107); CHOLESTEROL LEVEL 118 MG/DL (<200); CREATININE FOR GFR 0.78 MG/DL (0.70-1.30); GLOMERULAR FILTRATION RATE > 60.0 (>49); GLUCOSE, FASTING 142 MG/DL (74-106); HDL CHOLESTEROL 30.2 MG/DL (>40); LDL CHOLESTEROL 66.6 MG/DL (<100); NON-HDL-C 87.8 MG/DL; POTASSIUM SERUM 5.1 MMOL/L (3.5-5.1); PSA SCREENING 1.87 NG/ML (< 4.00); SODIUM LEVEL 138 MMOL/L (136-145); TOTAL PROTEIN 6.3 G/DL (5.7-8.2); TRIGLYCERIDES LEVEL 106 MG/DL (<150)
[2023-07-16 17:54] LABS: TOTAL 25(OH) VITAMIN D 71.8 NG/ML (20.0-100.0)
[2023-07-17 16:09] LABS: CALCIUM LEVEL 9.5 MG/DL (8.3-10.6)
== END ==
LOC: M WUC 11:26
PROVIDERS: ATTEND Family Medicine
DX: C91.11 Chronic lymphocytic leukemia of B-cell type in remission (principal); E11.9 Type 2 diabetes mellitus without complications; E55.9 Vitamin D deficiency, unspecified; E78.5 Hyperlipidemia, unspecified; I10 Essential (primary) hypertension; Z12.5 Encounter for screening for malignant neoplasm of prostate
CPT/HCPCS: 36415; 80053; 80061; 82043; 82306; 83036; 85025; G0103

== ENCOUNTER → 2023-08-22 | Outpatient (CLI) | payer OTHER ==
[~2023-08-22] MED LIST changes: +DOXY-323 PO; -DOXY-443 PO
== END ==
LOC: M SLEEP 20:00
PROVIDERS: ATTEND Physician Assistant
DX: G47.33 Obstructive sleep apnea (adult) (pediatric) (principal)

== ENCOUNTER → 2023-10-16 | Outpatient (REF) | payer OTHER ==
[2023-10-16 16:27] LABS: PLATELET COUNT, AUTOMATED 221 10^3/uL (150-450)
[2023-10-16 17:24] LABS: INR 1.01; PARTIAL THROMBOPLASTIN TIME 26.6 SECONDS (24.8-34.2)
== END ==
LOC: M LABWUC 16:14
PROVIDERS: ATTEND Physician Assistant Surgical
DX: Z01.818 Encounter for other preprocedural examination (principal)

== ENCOUNTER 2024-02-03 19:16 | Emergency (ER) | payer OTHER ==
[~2024-02-03] VITALS: Ht 172.7 cm; Wt 92.0 kg
[~2024-02-03 19:16] MED LIST changes: -DOXY-323 PO; +DOXY-441 PO
[2024-02-03 19:19] VITALS: TEMP 97.8
[2024-02-03] MEDS: FLUORESCEIN OPHTH 1MG STRIP OD ONE (19:40)
[2024-02-03] MEDS: TETRACAINE 0.5% OPHTH SOLN 4ML OD ONE (19:40)
[2024-02-03] MEDS ORDERED: TETRACAINE 0.5% OPHTH SOLN 4ML As Ordered ONE (19:48)
[2024-02-03 20:14] VITALS: BP 148/74; O2SAT 96
[2024-02-03] MEDS ORDERED: OCUF0.25 OD (20:21)
[2024-02-03] MEDS: OFLOXACIN 0.3 % (OCUFLOX) OPTH SOL 5ML OD SCH (20:38)
== END 2024-02-03 21:18 | disposition home or self-care (01) ==
LOC: M ED 19:16
DX: S05.01XA Injury of conjunctiva and corneal abrasion without foreign body, right eye, initial encounter (principal); H11.31 Conjunctival hemorrhage, right eye; Y92.9 Unspecified place or not applicable; Y93.9 Activity, unspecified; Y99.9 Unspecified external cause status; W20.8XXA Other cause of strike by thrown, projected or falling object, initial encounter; Z88.8 Allergy status to other drugs, medicaments and biological substances; Z79.84 Long term (current) use of oral hypoglycemic drugs; Z79.899 Other long term (current) drug therapy

== ENCOUNTER → 2024-03-27 | Outpatient (REF) | payer OTHER ==
[~2024-03-27] MED LIST changes: +OCUF0.25 OD
[2024-03-27 19:00] LABS: APPEARANCE, URINE CLEAR (CLEAR); BACTERIA, URINE AUTO NEGATIVE (NEGATIVE); BILIRUBIN, URINE AUTO NEGATIVE (NEGATIVE); BLOOD, URINE BLOOD NEGATIVE (NEGATIVE); COLOR, URINE STRAW (YELLOW); GLUCOSE, URINE (UA) AUTO 1+ mg/dL (NEGATIVE); KETONE, URINE AUTO NEGATIVE (NEGATIVE); LEUKOCYTE ESTERASE, URINE AUTO NEGATIVE (NEGATIVE); NITRITE, URINE AUTO NEGATIVE (NEGATIVE); PROTEIN, URINE AUTO NEGATIVE (NEGATIVE); RBC, URINE AUTO 0 /HPF (0-3); SPECIFIC GRAVITY URINE AUTO 1.011 (1.002-1.035); SQUAMOUS EPITHELIAL CELL UR AU 0 /HPF (0-6); UROBILINOGEN, URINE AUTO 0.2 mg/dL (0.0-2.0); WBC, URINE AUTO 0 /HPF (0-3)
== END ==
LOC: M SMT 17:17
PROVIDERS: ATTEND Physician Assistant
DX: R39.15 Urgency of urination (principal)

== ENCOUNTER 2024-03-29 06:10 | Emergency (ER) | payer OTHER ==
[~2024-03-29] VITALS: Ht 172.7 cm; Wt 90.0 kg
[2024-03-29 06:41] VITALS: TEMP 97.1
[2024-03-29 06:58] LABS: HEMATOCRIT 42.2 % (42.0-52.0); HEMOGLOBIN 13.4 g/dl (13.5-17.5); MEAN CORPUSCULAR HGB CONC 31.8 g/dl (32.0-36.5); MEAN CORPUSCULAR VOLUME 94.4 fl (80.0-96.0); PLATELET COUNT, AUTOMATED 235 10^3/uL (150-450); RED BLOOD COUNT 4.47 10^6/uL (4.30-6.10); WHITE BLOOD COUNT 13.5 10^3/uL (4.0-10.0)
[2024-03-29 07:20] LABS: CK-MB VALUE MASS 3.1 NG/ML (<3.6)
[2024-03-29 07:23] LABS: CPK CREATINE PHOSPHOKINASE 381 U/L (46-171); MB/CK RELATIVE INDEX 0.81 (< OR =4)
[2024-03-29 07:30] LABS: ATYPICAL LYMPH 9 % (0-5); LYMPHOCYTES 68 % (16-44); MONOCYTES 4 % (0-5); NEUTROPHILS 19 % (28-66); PLATELET ESTIMATE NORMAL (NORMAL); SMUDGE CELLS 1+
[2024-03-29] MEDS: ASPIRIN 81MG CHEW TABLET PO ONE (07:40)
[2024-03-29 07:47] LABS: BLOOD UREA NITROGEN 27 MG/DL (9-23); CALCIUM LEVEL 9.6 MG/DL (8.3-10.6); CARBON DIOXIDE LEVEL 27 MMOL/L (20-31); CHLORIDE LEVEL 105 MMOL/L (98-107); CREATININE FOR GFR 0.85 MG/DL (0.70-1.30); GLOMERULAR FILTRATION RATE > 60.0 (>49); GLUCOSE, FASTING 107 MG/DL (74-106); POTASSIUM SERUM 4.5 MMOL/L (3.5-5.1); SODIUM LEVEL 137 MMOL/L (136-145)
[2024-03-29] MEDS ORDERED: ISOVUE-370 76% 100ML VIAL As Ordered ONE (07:52)
[2024-03-29 08:28] LABS: CK-MB VALUE MASS 2.5 NG/ML (<3.6)
[2024-03-29 08:29] LABS: MB/CK RELATIVE INDEX 0.72 (< OR =4)
[2024-03-29 11:00] VITALS: BP 108/54; O2SAT 95
== END 2024-03-29 11:19 | disposition home or self-care (01) ==
LOC: M ED 06:10
DX: R07.89 Other chest pain (principal); R00.1 Bradycardia, unspecified; E11.9 Type 2 diabetes mellitus without complications; I10 Essential (primary) hypertension; E78.5 Hyperlipidemia, unspecified; K21.9 Gastro-esophageal reflux disease without esophagitis; G47.33 Obstructive sleep apnea (adult) (pediatric); Z87.891 Personal history of nicotine dependence; Z88.8 Allergy status to other drugs, medicaments and biological substances; Z79.4 Long term (current) use of insulin; Z79.84 Long term (current) use of oral hypoglycemic drugs; Z79.899 Other long term (current) drug therapy
CPT/HCPCS: 36415; 71045; 71275; 80048; 82550; 82553; 84484; 85025; 93005; 93041; 94760; 99285; Q9967

== ENCOUNTER → 2024-05-14 | Outpatient (CLI) | payer OTHER | LOC: M RAD 12:17 | PROVIDERS: ATTEND Physician Assistant | DX: N50.89 Other specified disorders of the male genital organs (principal); Z12.5 Encounter for screening for malignant neoplasm of prostate; N43.3 Hydrocele, unspecified | CPT/HCPCS: 36415; 76870; 93976; G0103 ==

== ENCOUNTER 2025-03-04 13:41 | Emergency (ER) | payer OTHER ==
[~2025-03-04] VITALS: Ht 167.6 cm; Wt 92.2 kg
[~2025-03-04 13:41] MED LIST changes: +GLIP-318 PO; -GLIP5TAB20 PO
[2025-03-04 13:46] VITALS: BP 132/63; TEMP 97.4; O2SAT 97
[2025-03-04] MEDS ORDERED: IBUP600T42 PO (15:34)
== END 2025-03-04 15:45 | disposition home or self-care (01) ==
LOC: M ED 13:41
DX: S83.91XA Sprain of unspecified site of right knee, initial encounter (principal); W01.198A Fall on same level from slipping, tripping and stumbling with subsequent striking against other object, initial encounter; E11.9 Type 2 diabetes mellitus without complications; Y92.89 Other specified places as the place of occurrence of the external cause; Y93.89 Activity, other specified; Y99.0 Civilian activity done for income or pay; Z88.8 Allergy status to other drugs, medicaments and biological substances; Z79.899 Other long term (current) drug therapy; Z79.1 Long term (current) use of non-steroidal anti-inflammatories (NSAID)